=== PATIENT | female | born 1980 | race Two or more races ===

== ENCOUNTER 2018-05-27 14:45 | Inpatient (IN) | payer OTHER ==
[~2018-05-27] VITALS: Ht 167.6 cm; Wt 77.6 kg
[2018-06-16] MEDS ORDERED: PRENATAL FORMU1 EAC1 PO (12:11)
== END 2018-06-18 14:21 | DRG 775 ==
LOC: OB/GYN 06-16 12:02 → LDR 06-16 12:02 → OB/GYN 06-16 22:22 → LDR 06-17 14:45 → OB/GYN 06-18 14:21
PROC: 10E0XZZ Delivery of Products of Conception, External Approach (ICD-10-PCS; principal; 2018-06-16)
PROC: 0HQ9XZZ Repair Perineum Skin, External Approach (ICD-10-PCS; 2018-06-16)
PROC: 4A1HXCZ Monitoring of Products of Conception, Cardiac Rate, External Approach (ICD-10-PCS; 2018-06-16)
DX: O70.0 First degree perineal laceration during delivery (principal); Z3A.39 39 weeks gestation of pregnancy; Z37.0 Single live birth